=== PATIENT | male | born 1955 | race Caucasian/White ===

== ENCOUNTER → 2016-09-28 | Outpatient (CLI) | payer OTHER ==
--- NOTE | 2016-09-30 09:32 | EKG ---
[facility] [address] [place] [address] Test Date: 2016-09-28 Test Time: 07:29:51 Pat Name: LULU MENDOZA Department: Room: Gender: M Manager Multicultural: Dimitrios Damian : 1955 Requested By: YOVANI TRINIDAD Order Number: [id number] Reading MD: Interpretive Statements
== END | disposition home or self-care (01) ==
LOC: EKG 07:56
PROVIDERS: ATTEND Internal Medicine Cardiovascular Disease
DX: R00.2 Palpitations (principal); R07.9 Chest pain, unspecified; R53.83 Other fatigue
CPT/HCPCS: 93225

== ENCOUNTER 2017-02-09 09:41 | Inpatient (IN) | payer OTHER ==
[~2017-02-09] VITALS: Ht 188 cm; Wt 105.9 kg
[2017-02-09] MEDS ORDERED: SOTA80TA48 PO (09:53)
[2017-02-09] MEDS ORDERED: LISI-334 PO (09:56)
[2017-02-09] MEDS ORDERED: OMEP20CA9 PO (09:56)
[2017-02-09] MEDS ORDERED: L-thyroxine (09:56)
[2017-02-09] MEDS ORDERED: SIMV20TA3 PO (10:00)
[2017-02-09] MEDS ORDERED: ASPIRIN CHEWABLE 81 MG TABLET. PO ONE (10:00)
[2017-02-09] MEDS ORDERED: METF-620 PO (10:00)
[2017-02-09] MEDS ORDERED: MORPHINE SULFATE 4 MG/ML DISP.SYRIN. IV/SQ PRN (10:00)
[2017-02-09] MEDS ORDERED: MV,M1TAB4 PO (10:00)
[2017-02-09] MEDS ORDERED: HYDR25TA9 PO (10:00)
[2017-02-09] MEDS ORDERED: IV NORMAL SALINE 1000ML BAG 1,000 ML IV SCH (10:00)
[2017-02-09] MEDS ORDERED: AMLO1CAP12 PO (10:00)
[2017-02-09] MEDS ORDERED: BUPR100T7 PO (10:00)
[2017-02-09 10:09] LABS: BASO # 0.1 x10^3/uL (0.0-0.2); BASO % 1 % (0-3); EOS % 5 % (0-3); HEMATOCRIT 48.6 % (39.0-53.0); HEMOGLOBIN 16.5 g/dL (13.0-17.5); LYMPH # 1.6 x10^3/uL (1.0-4.8); LYMPH % 19 % (24-48); MEAN CORPUSCULAR HEMOGLOBIN 29 pg (25-35); MEAN CORPUSCULAR HGB CONC 34 g/dL (31-37); MEAN CORPUSCULAR VOLUME 87 fL (79-100); MONO % 7 % (0-9); NEUT % 69 % (31-73); PLATELET COUNT 331 x10^3/uL (140-400); RED CELL DISTRIBUTION WIDTH 14.6 % (11.5-14.5); WHITE BLOOD COUNT 8.2 x10^3/uL (4.0-11.0)
[2017-02-09] MEDS ORDERED: ONDANSETRON PF 4 MG/2 ML VIAL. IV ONE (10:15)
[2017-02-09 10:20] LABS: PROTHROMBIN TIME PATIENT 12.7 SEC (11.7-14.0)
[2017-02-09 10:24] LABS: CALCIUM 8.8 mg/dL (8.5-10.1); POTASSIUM 4.1 mmol/L (3.5-5.1)
[2017-02-09 10:30] LABS: ALBUMIN 3.7 g/dL (3.4-5.0); ALBUMIN/GLOBULIN RATIO 0.9 (1.0-1.7); MAGNESIUM 1.9 mg/dL (1.8-2.4); TOTAL BILIRUBIN 0.6 mg/dL (0.2-1.0); TOTAL PROTEIN 7.7 g/dL (6.4-8.2)
--- NOTE | 2017-02-09 10:47 | RAD ---
Portable chest, 02/09/2017: History: Chest pain Comparison is made to a study from 10/10/2009. The heart size and pulmonary vascularity are normal. No pulmonary infiltrates are seen. There is no evidence of pleural fluid. IMPRESSION: No acute cardiopulmonary abnormality is detected.
--- NOTE | 2017-02-09 11:00 | EKG ---
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
--- NOTE | 2017-02-09 12:19 | PHYS DOC ---
Past Medical History Past Medical History: CAD, Depression, Diabetes-Type II, Hypertension, Hypothyroid Additional Past Medical Histor: LOW TESTOSTERONE Past Surgical History: Tonsillectomy Additional Past Surgical Histo: HEART CATH, SINUS SURGERY, lEFT CARPAL TUNNEL, UMBILICAL HERNIA REPAIR, Past Surgical History tonsillectomy Alcohol Use: Occasionally Drug Use: None Adult General Chief Complaint Chief Complaint: CHEST PAIN HPI HPI Patient is a 61 year old male who reports chest aching yesterday that lasted a number of hours. The patient was today he had midsternal chest tightness with shortness of air and dizziness as well as headache. The patient rated his headache is 3 out of 10 the patient rated his chest pain at the worst 4 out of 10 and was currently 01 on arrival to the emergency department. 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 The patient reports having had a negative cardiac catheter 5 years ago. The patient has history of facial fibrillation hypertension hypercholesterolemia and diabetes. Review of Systems Review of Systems Constitutional: Denies fever or chills [] Eyes: Denies change in visual acuity, redness, or eye pain [] HENT: Denies nasal congestion or sore throat [] Respiratory: Denies cough [] Cardiovascular: No additional information not addressed in HPI [] GI: Denies abdominal pain, nausea, vomiting, bloody stools or diarrhea [] : Denies dysuria or hematuria [] Musculoskeletal: Denies back pain or joint pain [] Integument: Denies rash or skin lesions [] Neurologic: Denies headache, focal weakness or sensory changes [] Endocrine: Denies polyuria or polydipsia [] All other systems were reviewed and found to be within normal limits, except as documented in this note. Current Medications Current Medications Current Medications Medications (Trade) Dose Ordered Sig/Maris Start Time Stop Time Status Last Admin Dose Admin Aspirin (Children'S Aspirin) 324 mg 1X ONCE 02/09/17 10:00 02/09/17 10:05 DC 02/09/17 10:14 324 MG Morphine Sulfate 4 mg PRN Q15MIN PRN 02/09/17 10:00 02/10/17 09:59 02/09/17 10:14 4 MG Ondansetron HCl (Zofran) 8 mg 1X ONCE 02/09/17 10:15 02/09/17 10:16 DC 02/09/17 10:13 4 MG Sodium Chloride 1,000 ml @ 1,000 mls/hr Q1H 02/09/17 10:00 02/09/17 10:59 DC 02/09/17 10:14 1,000 MLS/HR Allergies Allergies Allergies Coded Allergies Type Severity Reaction Last Updated Verified Penicillins Allergy Unknown 02/09/17 Yes Physical Exam Physical Exam Constitutional: Well developed, well nourished, no acute distress, non-toxic appearance. [] HENT: Normocephalic, atraumatic, bilateral external ears normal, oropharynx moist, no oral exudates, nose normal. [] Eyes: PERRLA, EOMI, conjunctiva normal, no discharge. [] Neck: Normal range of motion, no tenderness, supple, no stridor. [] Cardiovascular:Heart rate regular rhythm, no murmur [] Lungs & Thorax: Bilateral breath sounds clear to auscultation [] Abdomen: Bowel sounds normal, soft, no tenderness, no masses, no pulsatile masses. [] Skin: Warm, dry, no erythema, no rash. [] Back: No tenderness, no CVA tenderness. [] Extremities: No tenderness, no cyanosis, no clubbing, ROM intact, no edema. [] Neurologic: Alert and oriented X 3, normal motor function, normal sensory function, no focal deficits noted. [] Psychologic: Affect normal, judgement normal, mood normal. [] Current Patient Data Vital Signs Vital Signs Date Time Temp Pulse Resp B/P (MAP) Pulse Ox O2 Delivery O2 Flow Rate FiO2 02/09/17 12:17 76 16 127/70 (89) 97 Room Air 02/09/17 10:03 97.8 97.8 Lab Values Laboratory Tests Test 02/09/17 10:03 02/09/17 13:43 02/09/17 13:45 White Blood Count 8.2 x10^3/uL (4.0-11.0) Red Blood Count 5.60 x10^6/uL (4.30-5.70) Hemoglobin 16.5 g/dL (13.0-17.5) Hematocrit 48.6 % (39.0-53.0) Mean Corpuscular Volume 87 fL (79-100) Mean Corpuscular Hemoglobin 29 pg (25-35) Mean Corpuscular Hemoglobin Concent 34 g/dL (31-37) Red Cell Distribution Width 14.6 % (11.5-14.5) H Platelet Count 331 x10^3/uL (140-400) Neutrophils (%) (Auto) 69 % (31-73) Lymphocytes (%) (Auto) 19 % (24-48) L Monocytes (%) (Auto) 7 % (0-9) Eosinophils (%) (Auto) 5 % (0-3) H Basophils (%) (Auto) 1 % (0-3) Neutrophils # (Auto) 5.7 x10^3uL (1.8-7.7) Lymphocytes # (Auto) 1.6 x10^3/uL (1.0-4.8) Monocytes # (Auto) 0.6 x10^3/uL (0.0-1.1) Eosinophils # (Auto) 0.4 x10^3/uL (0.0-0.7) Basophils # (Auto) 0.1 x10^3/uL (0.0-0.2) Prothrombin Time 12.7 SEC (11.7-14.0) Prothrombin Time INR 1.0 (0.8-1.1) PTT 30 SEC (24-38) D-Dimer (Shraddha) 0.27 ug/mlFEU (0.00-0.50) Sodium Level 139 mmol/L (136-145) Potassium Level 4.1 mmol/L (3.5-5.1) Chloride Level 103 mmol/L (98-107) Carbon Dioxide Level 29 mmol/L (21-32) Anion Gap 7 (6-14) Blood Urea Nitrogen 14 mg/dL (8-26) Creatinine 1.0 mg/dL (0.7-1.3) Estimated GFR (Cockcroft-Gault) 76.0 BUN/Creatinine Ratio 14 (6-20) Glucose Level 282 mg/dL (70-99) H Calcium Level 8.8 mg/dL (8.5-10.1) Magnesium Level 1.9 mg/dL (1.8-2.4) Total Bilirubin 0.6 mg/dL (0.2-1.0) Aspartate Amino Transferase (AST) 24 U/L (15-37) Alanine Aminotransferase (ALT) 43 U/L (16-63) Alkaline Phosphatase 64 U/L (46-116) Troponin I Quantitative < 0.017 ng/mL (0.000-0.055) < 0.017 ng/mL (0.000-0.055) Total Protein 7.7 g/dL (6.4-8.2) Albumin 3.7 g/dL (3.4-5.0) Albumin/Globulin Ratio 0.9 (1.0-1.7) L Lipase 219 U/L (73-393) POC Troponin I 0.01 ng/ml (<0.08) Laboratory Tests 02/09/17 10:03 Laboratory Tests 02/09/17 10:03 EKG EKG EKG displays sinus rhythm with left axis deviation the SC interval 290 ms qrs duration is 94 ms QT interval is 360 ms there are inverted T waves in lead aVR[] Radiology/Procedures Radiology/Procedures [facility] [address] [place] [address] IMAGING REPORT Signed PATIENT: LULU MENDOZA ACCOUNT: [id number] : 1955 LOCATION: ER AGE: 61 SEX: M EXAM STATUS: REG ER ORD. PHYSICIAN: THONY MEEKS MD REASON: chest pain PROCEDURE: PORTABLE CHEST 1V Portable chest, 02/09/2017: History: Chest pain Comparison is made to a study from 10/10/2009. The heart size and pulmonary vascularity are normal. No pulmonary infiltrates are seen. There is no evidence of pleural fluid. IMPRESSION: No acute cardiopulmonary abnormality is detected. DICTATED and SIGNED BY: KEN ENCINAS MD DATE: 02/09/17 1041 CC: OC JACQUES; THONY MEEKS MD ~ [] Course & Med Decision Making Course & Med Decision Making Pertinent Labs and Imaging studies reviewed. (See chart for details) Chest x-ray does not show any acute process, the patient's d-dimer was 0.27. The patient has low risk for pulmonary emboli. The patient's coagulation studies are within normal limits. The patient's CMP shows elevated glucose at 282. Otherwise within normal limits. CBC shows an shows a normal white blood cell count and normal H&H and normal platelet count. Patient works that his pain is improved during his ED evaluation. The patient at 12:30 PM and he reports he is feeling much better. I went over the plan was discussed with Dr. Mojica for repeat set of laboratory values of those are reassuring outpatient follow-up the patient verbalizes understanding and agreement with that plan. Rechecked patient 132 patient states that he feels weak and that he describes dizziness as feeling like he is about to pass out. The patient [facility] Going Home and Followed up As an Outpatient so He'll Be Admitted to the Hospital. Consult Note: Automotive [employer] Counter Assistant: Dr. Deyvi Mojica First Tylenol was at 1214 we plan outpatient management follow-up call was at 2: 28 PM and he agrees with plan for admission given the patient's symptoms all resolved. I discussed the case to include the history, physical exam findings, diagnostic studies performed, laboratory studies performed, results and plan of care. A consult agreed with established plan. Consult Note: [employer] Counter Assistant: Dr. Quin Flores Automotive [employer] Counter Assistant called at:14:18 I discussed the case to include the history, physical exam findings, diagnostic studies performed, laboratory studies performed, results and plan of care. A consult agreed with established plan. Dr. Peña recommended that we admit the patient is inpatient his history and risk factors. Dragon Disclaimer Dragon Disclaimer This electronic medical record was generated, in whole or in part, using a voice recognition dictation system. Departure Departure Referrals: OC JACQUES (PCP) THONY MEEKS MD Feb 09, 2017 12:19
[2017-02-09] MEDS ORDERED: DEXTROSE 50% 25 GM / 50ML DISP.SYRIN. IV PRN (15:00)
[2017-02-09] MEDS ORDERED: ONDANSETRON PF 4 MG/2 ML VIAL. IV PRN ×2 (15:00)
[2017-02-09] MEDS ORDERED: ACETAMINOPHEN 500 MG TABLET PO PRN (15:00)
[2017-02-09] MEDS ORDERED: NITROGLYCERIN SUBLINGUAL 0.4 MG BOTTLE OF 25. SL PRN (15:00)
[2017-02-09] MEDS ORDERED: MORPHINE SULFATE 4 MG/ML DISP.SYRIN. IV PRN (15:00)
--- NOTE | 2017-02-09 15:03 | PDOC1 ---
History and Physical Date of Admission Date of Admission DATE: 02/09/17 TIME: 14:59 Identification/Chief Complaint Chief Complaint chest tightness Problems: Source Source: Caregiver, Chart review, Patient History of Present Illness History of Present Illness Very pleasant 61 y.o obese male who does a high stress job but claims no recent change in habits, stress level etc, CP described as left sided, chest tightness , pressure yesterday at rest and today again at work non exertional, Some SOA, dizzy, no diaphoresis, came to er so far EKG and trops x 2 ok. LAst LHC 5 yrs ago,clean, MPI a montn ago By Sara Ramirez, Admitted with cards. Morphine somewhat helped the pain. VS very good DM 2 with hgba1c 6,.4 only on OHA Past Medical History Cardiovascular: HTN, Hyperlipidemia Endocrine: Diabetes Past Surgical History Past Surgical History: Hernia Repair, Tonsillectomy, Other (carpal tunnel release) Family History Family History: High Cholestrol, Hypertension Social History Smoke: No ALCOHOL: occassional Drugs: None Current Medications Current Medications Current Medications Aspirin (Children'S Aspirin) 324 mg 1X ONCE PO Last administered on 10:14; Start 02/09/17 at 10:00; Stop 02/09/17 at 10:05; Status DC Morphine Sulfate 4 mg PRN Q15MIN PRN IV/SQ PAIN GREATER THAN 3/10 Last administered on 02/09/17 10:14; Start 02/09/17 at 10:00; Stop 02/10/17 at 09 :59 Sodium Chloride 1,000 ml @ 1,000 mls/hr Q1H IV Last administered on 10:14; Start 02/09/17 at 10:00; Stop 02/09/17 at 10:59; Status DC Ondansetron HCl (Zofran) 8 mg 1X ONCE IV Last administered on 02/09/17 10:13 ; Start 02/09/17 at 10:15; Stop 02/09/17 at 10:16; Status DC Ondansetron HCl (Zofran) 4 mg PRN Q8HRS PRN IV NAUSEA/VOMITING; Start at 15:00; Stop 02/10/17 at 14:59 Morphine Sulfate 4 mg PRN Q2HR PRN IV PAIN; Start 02/09/17 at 15:00; Stop at 14:59 Sodium Chloride 1,000 ml @ 60 mls/hr [id number] IV ; Start 02/09/17 at 14:47; Stop 02/10/17 at 14:46 Nitroglycerin (Nitrostat) 0.4 mg PRN Q5MIN PRN SL CHEST PAIN; Start 02/09/17 at 15:00; Stop 02/10/17 at 14:59 Active Scripts Active Reported Simvastatin 20 Mg Tablet 20 Mg PO HS One Daily For Men 50+ Adv Tab (Mv,Minerals/Fa/Lycopene/Ginkgo) 1 Each Tablet 1 Each PO Wellbutrin Sr (Bupropion Hcl) 100 Mg Tablet.er 100 Mg PO DAILY Metformin Hcl 1,000 Mg Tablet 1,000 Mg PO DAILYWBKFT Hydrochlorothiazide Tablet (Hydrochlorothiazide) 25 Mg Tablet 25 Mg PO DAILY Amlodipine-Benazepril 10-20 Mg (Amlodipine Besylate/Benazepril) 1 Each Capsule 1 Cap PO DAILY [L-thyroxine] Omeprazole 20 Mg Capsule.dr 20 Mg PO DAILY Lisinopril 20 Mg Tablet 20 Mg PO DAILY Sotalol (Sotalol Hcl) 80 Mg Tablet 1 Tab PO BID Allergies Allergies: Coded Allergies: Penicillins (Verified Allergy, Unknown, 02/09/17) ROS Review of System neg as per HPI 14 pt reviewed Physical Exam General: Alert, Oriented X3, Cooperative, No acute distress HEENT: Atraumatic, PERRLA, EOMI, Mucous membr. moist/pink Lungs: Clear to auscultation, Normal air movement Heart: S1S2, RRR, no thrills, no rubs, no gallops, no murmurs Cardiovascular: S1, S2 Abdomen: Normal bowel sounds, Soft, No tenderness, No hepatosplenomegaly, No masses Male Genitals Exam: normal genitalia, normal prostate Rectal Exam: not examined, mass PELVIC: Nml ext genitalia Extremities: No clubbing, No cyanosis, No edema, Normal pulses, No tenderness/ swelling Skin: No rashes, No breakdown, No significant lesion Neuro: Normal gait, Normal speech, Strength at 5/5 X4 ext, Normal tone, Sensation intact, Cranial nerves 3-12 NL, Reflexes 2+ Psych/Mental Status: Mental status NL, Mood NL Vitals Vitals Vital Signs Date Time Temp Pulse Resp B/P (MAP) Pulse Ox O2 Delivery O2 Flow Rate FiO2 02/09/17 12:17 76 16 127/70 (89) 97 Room Air 02/09/17 10:03 97.8 97.8 Labs Labs Laboratory Tests Test 02/09/17 10:03 02/09/17 13:43 02/09/17 13:45 White Blood Count 8.2 x10^3/uL (4.0-11.0) Red Blood Count 5.60 x10^6/uL (4.30-5.70) Hemoglobin 16.5 g/dL (13.0-17.5) Hematocrit 48.6 % (39.0-53.0) Mean Corpuscular Volume 87 fL (79-100) Mean Corpuscular Hemoglobin 29 pg (25-35) Mean Corpuscular Hemoglobin Concent 34 g/dL (31-37) Red Cell Distribution Width 14.6 % (11.5-14.5) Platelet Count 331 x10^3/uL (140-400) Neutrophils (%) (Auto) 69 % (31-73) Lymphocytes (%) (Auto) 19 % (24-48) Monocytes (%) (Auto) 7 % (0-9) Eosinophils (%) (Auto) 5 % (0-3) Basophils (%) (Auto) 1 % (0-3) Neutrophils # (Auto) 5.7 x10^3uL (1.8-7.7) Lymphocytes # (Auto) 1.6 x10^3/uL (1.0-4.8) Monocytes # (Auto) 0.6 x10^3/uL (0.0-1.1) Eosinophils # (Auto) 0.4 x10^3/uL (0.0-0.7) Basophils # (Auto) 0.1 x10^3/uL (0.0-0.2) Prothrombin Time 12.7 SEC (11.7-14.0) Prothromb Time International Ratio 1.0 (0.8-1.1) Activated Partial Thromboplast Time 30 SEC (24-38) D-Dimer (Shraddha) 0.27 ug/mlFEU (0.00-0.50) Sodium Level 139 mmol/L (136-145) Potassium Level 4.1 mmol/L (3.5-5.1) Chloride Level 103 mmol/L (98-107) Carbon Dioxide Level 29 mmol/L (21-32) Anion Gap 7 (6-14) Blood Urea Nitrogen 14 mg/dL (8-26) Creatinine 1.0 mg/dL (0.7-1.3) Estimated GFR (Cockcroft-Gault) 76.0 BUN/Creatinine Ratio 14 (6-20) Glucose Level 282 mg/dL (70-99) Calcium Level 8.8 mg/dL (8.5-10.1) Magnesium Level 1.9 mg/dL (1.8-2.4) Total Bilirubin 0.6 mg/dL (0.2-1.0) Aspartate Amino Transf (AST/SGOT) 24 U/L (15-37) Alanine Aminotransferase (ALT/SGPT) 43 U/L (16-63) Alkaline Phosphatase 64 U/L (46-116) Troponin I Quantitative < 0.017 ng/mL (0.000-0.055) < 0.017 ng/mL (0.000-0.055) Total Protein 7.7 g/dL (6.4-8.2) Albumin 3.7 g/dL (3.4-5.0) Albumin/Globulin Ratio 0.9 (1.0-1.7) Lipase 219 U/L (73-393) Bedside Troponin I 0.01 ng/ml (<0.08) Laboratory Tests Test 02/09/17 10:03 02/09/17 13:43 02/09/17 13:45 White Blood Count 8.2 x10^3/uL (4.0-11.0) Red Blood Count 5.60 x10^6/uL (4.30-5.70) Hemoglobin 16.5 g/dL (13.0-17.5) Hematocrit 48.6 % (39.0-53.0) Mean Corpuscular Volume 87 fL (79-100) Mean Corpuscular Hemoglobin 29 pg (25-35) Mean Corpuscular Hemoglobin Concent 34 g/dL (31-37) Red Cell Distribution Width 14.6 % (11.5-14.5) Platelet Count 331 x10^3/uL (140-400) Neutrophils (%) (Auto) 69 % (31-73) Lymphocytes (%) (Auto) 19 % (24-48) Monocytes (%) (Auto) 7 % (0-9) Eosinophils (%) (Auto) 5 % (0-3) Basophils (%) (Auto) 1 % (0-3) Neutrophils # (Auto) 5.7 x10^3uL (1.8-7.7) Lymphocytes # (Auto) 1.6 x10^3/uL (1.0-4.8) Monocytes # (Auto) 0.6 x10^3/uL (0.0-1.1) Eosinophils # (Auto) 0.4 x10^3/uL (0.0-0.7) Basophils # (Auto) 0.1 x10^3/uL (0.0-0.2) Prothrombin Time 12.7 SEC (11.7-14.0) Prothromb Time International Ratio 1.0 (0.8-1.1) Activated Partial Thromboplast Time 30 SEC (24-38) D-Dimer (Shraddha) 0.27 ug/mlFEU (0.00-0.50) Sodium Level 139 mmol/L (136-145) Potassium Level 4.1 mmol/L (3.5-5.1) Chloride Level 103 mmol/L (98-107) Carbon Dioxide Level 29 mmol/L (21-32) Anion Gap 7 (6-14) Blood Urea Nitrogen 14 mg/dL (8-26) Creatinine 1.0 mg/dL (0.7-1.3) Estimated GFR (Cockcroft-Gault) 76.0 BUN/Creatinine Ratio 14 (6-20) Glucose Level 282 mg/dL (70-99) Calcium Level 8.8 mg/dL (8.5-10.1) Magnesium Level 1.9 mg/dL (1.8-2.4) Total Bilirubin 0.6 mg/dL (0.2-1.0) Aspartate Amino Transf (AST/SGOT) 24 U/L (15-37) Alanine Aminotransferase (ALT/SGPT) 43 U/L (16-63) Alkaline Phosphatase 64 U/L (46-116) Troponin I Quantitative < 0.017 ng/mL (0.000-0.055) < 0.017 ng/mL (0.000-0.055) Total Protein 7.7 g/dL (6.4-8.2) Albumin 3.7 g/dL (3.4-5.0) Albumin/Globulin Ratio 0.9 (1.0-1.7) Lipase 219 U/L (73-393) Bedside Troponin I 0.01 ng/ml (<0.08) VTE Prophylaxis Ordered VTE Prophylaxis Devices: Yes VTE Pharmacological Prophylaxi: Yes Assessment/Plan Assessment/Plan 1. CP 2. Dm 2 on OHA with good control 3,. Obesity PLAn: Admit Cycle CE 'Dr Roberts consult SSi Resume home meds Seen at JADEN PARKER MD Feb 09, 2017 15:03
[2017-02-09 15:50] VITALS: BP 131/78
[2017-02-09] MEDS: INSULIN ASPART 300 UNITS/3 ML INSULN.PEN SQ SCH (17:00)
--- NOTE | 2017-02-09 17:32 | PDOC2 ---
CONSULT Date of Consult Date of Consult DATE: 02/09/17 TIME: 17:27 Reason for Consult Reason for Consult: Chest pain Referring Physician Referring Physician: Dr. Flores Identification/Chief Complaint Chief Complaint Chest pain Problems: History of Present Illness Reason for Visit: This patient is a 61-year-old gentleman that has a known history of diabetes, hypertension, hyperlipidemia. 5 years ago he had some episodes of chest pains and he had a workup done including a heart catheterization which showed normal coronaries at that time. The patient has been doing rather well until now when he came into the emergency room with some chest tightness. The patient's EKG did not show any acute changes and the first troponin was negative. At the time that I saw the patient he denies having any more chest discomfort. The pain that he had he states was like a tightness over the retrosternal area he was not diaphoretic and he was not short of breath. Past Medical History Cardiovascular: HTN, Hyperlipidemia Musculoskeletal: Osteoarthritis Endocrine: Diabetes Past Surgical History Past Surgical History: Hernia Repair, Tonsillectomy, Other (carpal tunnel release) Family History Family History: High Cholestrol, Hypertension Social History No ALCOHOL: occassional Drugs: None Current Medications Current Medications Current Medications Aspirin (Children'S Aspirin) 324 mg 1X ONCE PO Last administered on 10:14; Start 02/09/17 at 10:00; Stop 02/09/17 at 10:05; Status DC Morphine Sulfate 4 mg PRN Q15MIN PRN IV/SQ PAIN GREATER THAN 3/10 Last administered on 02/09/17 10:14; Start 02/09/17 at 10:00; Stop 02/09/17 at 15 :16; Status DC Sodium Chloride 1,000 ml @ 1,000 mls/hr Q1H IV Last administered on 10:14; Start 02/09/17 at 10:00; Stop 02/09/17 at 10:59; Status DC Ondansetron HCl (Zofran) 8 mg 1X ONCE IV Last administered on 02/09/17 10:13 ; Start 02/09/17 at 10:15; Stop 02/09/17 at 10:16; Status DC Ondansetron HCl (Zofran) 4 mg PRN Q8HRS PRN IV NAUSEA/VOMITING; Start at 15:00; Stop 02/09/17 at 15:00; Status DC Morphine Sulfate 4 mg PRN Q2HR PRN IV PAIN; Start 02/09/17 at 15:00; Stop at 14:59 Sodium Chloride 1,000 ml @ 60 mls/hr [id number] IV ; Start 02/09/17 at 14:47; Stop 02/10/17 at 14:46 Nitroglycerin (Nitrostat) 0.4 mg PRN Q5MIN PRN SL CHEST PAIN; Start 02/09/17 at 15:00; Stop 02/10/17 at 14:59 Ondansetron HCl (Zofran) 4 mg PRN Q6HRS PRN IV NAUSEA/VOMITING; Start at 15:00; Stop 02/10/17 at 14:59 Acetaminophen (Tylenol) 500 mg PRN Q6HRS PRN PO MILD PAIN / TEMP; Start at 15:00 Insulin Aspart (NovoLOG) 0-9 UNITS TIDWMEALS SQ ; Start 02/09/17 at 17:00 Dextrose (Dextrose 50%-Water Syringe) 12.5 gm PRN Q15MIN PRN IV SEE COMMENTS; Start 02/09/17 at 15:00 Bupropion HCl (Wellbutrin Sr) 100 mg DAILY PO ; Start 02/10/17 at 09:00 Hydrochlorothiazide (Hydrodiuril) 25 mg DAILY PO ; Start 02/10/17 at 09:00 Lisinopril (Prinivil) 20 mg DAILY PO ; Start 02/10/17 at 09:00 Metformin HCl (Glucophage) 1,000 mg DAILYWBKFT PO ; Start 02/10/17 at 08:00 Simvastatin (Zocor) 20 mg HS PO ; Start 02/09/17 at 21:00 Sotalol HCl (Betapace) 80 mg BID PO ; Start 02/09/17 at 21:00 Amlodipine Besylate (Norvasc) 10 mg DAILY PO ; Start 02/10/17 at 09:00 Pantoprazole Sodium (Protonix) 40 mg DAILYAC PO ; Start 02/10/17 at 07:30 Active Scripts Active Reported Simvastatin 20 Mg Tablet 20 Mg PO HS One Daily For Men 50+ Adv Tab (Mv,Minerals/Fa/Lycopene/Ginkgo) 1 Each Tablet 1 Each PO Wellbutrin Sr (Bupropion Hcl) 100 Mg Tablet.er 100 Mg PO DAILY Metformin Hcl 1,000 Mg Tablet 1,000 Mg PO DAILYWBKFT Hydrochlorothiazide Tablet (Hydrochlorothiazide) 25 Mg Tablet 25 Mg PO DAILY Amlodipine-Benazepril 10-20 Mg (Amlodipine Besylate/Benazepril) 1 Each Capsule 1 Cap PO DAILY [L-thyroxine] Omeprazole 20 Mg Capsule.dr 20 Mg PO DAILY Lisinopril 20 Mg Tablet 20 Mg PO DAILY Sotalol (Sotalol Hcl) 80 Mg Tablet 1 Tab PO BID Allergies Allergies: Coded Allergies: Penicillins (Verified Allergy, Unknown, 02/09/17) Physical Exam General: Alert, Oriented X3, Cooperative HEENT: PERRLA Lungs: Clear to auscultation Heart: Regular rate, Normal S1, Normal S2 Abdomen: Normal bowel sounds, Soft Extremities: No edema Psych/Mental Status: Mental status NL Vitals VITALS Vital Signs Date Time Temp Pulse Resp B/P (MAP) Pulse Ox O2 Delivery O2 Flow Rate FiO2 02/09/17 16:22 76 16 118/74 (89) 97 Room Air 02/09/17 15:50 97.9 97.9 Labs Labs Laboratory Tests Test 02/09/17 10:03 02/09/17 13:43 02/09/17 13:45 02/09/17 16:00 White Blood Count 8.2 x10^3/uL (4.0-11.0) Red Blood Count 5.60 x10^6/uL (4.30-5.70) Hemoglobin 16.5 g/dL (13.0-17.5) Hematocrit 48.6 % (39.0-53.0) Mean Corpuscular Volume 87 fL (79-100) Mean Corpuscular Hemoglobin 29 pg (25-35) Mean Corpuscular Hemoglobin Concent 34 g/dL (31-37) Red Cell Distribution Width 14.6 % (11.5-14.5) Platelet Count 331 x10^3/uL (140-400) Neutrophils (%) (Auto) 69 % (31-73) Lymphocytes (%) (Auto) 19 % (24-48) Monocytes (%) (Auto) 7 % (0-9) Eosinophils (%) (Auto) 5 % (0-3) Basophils (%) (Auto) 1 % (0-3) Neutrophils # (Auto) 5.7 x10^3uL (1.8-7.7) Lymphocytes # (Auto) 1.6 x10^3/uL (1.0-4.8) Monocytes # (Auto) 0.6 x10^3/uL (0.0-1.1) Eosinophils # (Auto) 0.4 x10^3/uL (0.0-0.7) Basophils # (Auto) 0.1 x10^3/uL (0.0-0.2) Prothrombin Time 12.7 SEC (11.7-14.0) Prothromb Time International Ratio 1.0 (0.8-1.1) Activated Partial Thromboplast Time 30 SEC (24-38) D-Dimer (Shraddha) 0.27 ug/mlFEU (0.00-0.50) Sodium Level 139 mmol/L (136-145) Potassium Level 4.1 mmol/L (3.5-5.1) Chloride Level 103 mmol/L (98-107) Carbon Dioxide Level 29 mmol/L (21-32) Anion Gap 7 (6-14) Blood Urea Nitrogen 14 mg/dL (8-26) Creatinine 1.0 mg/dL (0.7-1.3) Estimated GFR (Cockcroft-Gault) 76.0 BUN/Creatinine Ratio 14 (6-20) Glucose Level 282 mg/dL (70-99) Calcium Level 8.8 mg/dL (8.5-10.1) Magnesium Level 1.9 mg/dL (1.8-2.4) Total Bilirubin 0.6 mg/dL (0.2-1.0) Aspartate Amino Transf (AST/SGOT) 24 U/L (15-37) Alanine Aminotransferase (ALT/SGPT) 43 U/L (16-63) Alkaline Phosphatase 64 U/L (46-116) Troponin I Quantitative < 0.017 ng/mL (0.000-0.055) < 0.017 ng/mL (0.000-0.055) Total Protein 7.7 g/dL (6.4-8.2) Albumin 3.7 g/dL (3.4-5.0) Albumin/Globulin Ratio 0.9 (1.0-1.7) Lipase 219 U/L (73-393) Bedside Troponin I 0.01 ng/ml (<0.08) Glucose (Fingerstick) 76 mg/dL (70-99) Laboratory Tests Test 02/09/17 10:03 02/09/17 13:43 02/09/17 13:45 02/09/17 16:00 White Blood Count 8.2 x10^3/uL (4.0-11.0) Red Blood Count 5.60 x10^6/uL (4.30-5.70) Hemoglobin 16.5 g/dL (13.0-17.5) Hematocrit 48.6 % (39.0-53.0) Mean Corpuscular Volume 87 fL (79-100) Mean Corpuscular Hemoglobin 29 pg (25-35) Mean Corpuscular Hemoglobin Concent 34 g/dL (31-37) Red Cell Distribution Width 14.6 % (11.5-14.5) Platelet Count 331 x10^3/uL (140-400) Neutrophils (%) (Auto) 69 % (31-73) Lymphocytes (%) (Auto) 19 % (24-48) Monocytes (%) (Auto) 7 % (0-9) Eosinophils (%) (Auto) 5 % (0-3) Basophils (%) (Auto) 1 % (0-3) Neutrophils # (Auto) 5.7 x10^3uL (1.8-7.7) Lymphocytes # (Auto) 1.6 x10^3/uL (1.0-4.8) Monocytes # (Auto) 0.6 x10^3/uL (0.0-1.1) Eosinophils # (Auto) 0.4 x10^3/uL (0.0-0.7) Basophils # (Auto) 0.1 x10^3/uL (0.0-0.2) Prothrombin Time 12.7 SEC (11.7-14.0) Prothromb Time International Ratio 1.0 (0.8-1.1) Activated Partial Thromboplast Time 30 SEC (24-38) D-Dimer (Shraddha) 0.27 ug/mlFEU (0.00-0.50) Sodium Level 139 mmol/L (136-145) Potassium Level 4.1 mmol/L (3.5-5.1) Chloride Level 103 mmol/L (98-107) Carbon Dioxide Level 29 mmol/L (21-32) Anion Gap 7 (6-14) Blood Urea Nitrogen 14 mg/dL (8-26) Creatinine 1.0 mg/dL (0.7-1.3) Estimated GFR (Cockcroft-Gault) 76.0 BUN/Creatinine Ratio 14 (6-20) Glucose Level 282 mg/dL (70-99) Calcium Level 8.8 mg/dL (8.5-10.1) Magnesium Level 1.9 mg/dL (1.8-2.4) Total Bilirubin 0.6 mg/dL (0.2-1.0) Aspartate Amino Transf (AST/SGOT) 24 U/L (15-37) Alanine Aminotransferase (ALT/SGPT) 43 U/L (16-63) Alkaline Phosphatase 64 U/L (46-116) Troponin I Quantitative < 0.017 ng/mL (0.000-0.055) < 0.017 ng/mL (0.000-0.055) Total Protein 7.7 g/dL (6.4-8.2) Albumin 3.7 g/dL (3.4-5.0) Albumin/Globulin Ratio 0.9 (1.0-1.7) Lipase 219 U/L (73-393) Bedside Troponin I 0.01 ng/ml (<0.08) Glucose (Fingerstick) 76 mg/dL (70-99) Assessment/Plan Assessment/Plan This patient with significant risk factors for coronary artery disease had a normal heart catheterization about 5 years ago. He now comes back with some symptoms that may be suspicious for angina and he is a diabetic. So far the EKG and the enzymes have been negative. In view of this I would like to get a Lexiscan MPI to be done in the morning. Thank you very much for asking me to participate in the care of this patient. YOVANI TRINIDAD MD Feb 09, 2017 17:32
[2017-02-09 19:00] VITALS: BP 136/77
[2017-02-09] MEDS: IV NORMAL SALINE 1000ML BAG 1,000 ML IV SCH (20:42)
[2017-02-09] MEDS: SOTALOL 80 MG TABLET. PO SCH (20:43)
[2017-02-09] MEDS ORDERED: SIMVASTATIN 20 MG TABLET PO SCH (21:00)
[2017-02-09 23:00] VITALS: BP 118/71
[2017-02-10 03:00] VITALS: BP 111/71
[2017-02-10 07:16] VITALS: BP 123/76
[2017-02-10] MEDS: IV NORMAL SALINE 1000ML BAG 1,000 ML IV SCH (07:27)
[2017-02-10] MEDS ORDERED: PANTOPRAZOLE 40 MG TABLET.DR. PO SCH (07:30)
[2017-02-10] MEDS: INSULIN ASPART 300 UNITS/3 ML INSULN.PEN SQ SCH ×2 (08:00→12:00)
[2017-02-10] MEDS ORDERED: REGADENOSON 0.4 MG/5 ML DISP.SYRIN. IV ONE (08:15)
[2017-02-10] MEDS ORDERED: amLODIPine BESYLATE 10 MG TABLET PO SCH (09:00)
[2017-02-10] MEDS ORDERED: LISINOPRIL 20 MG TABLET PO SCH (09:00)
[2017-02-10] MEDS ORDERED: buPROPion SR 100 MG TABLET.SA. PO SCH (09:00)
[2017-02-10] MEDS ORDERED: hydroCHLOROthiazide 25 MG TABLET PO SCH (09:00)
--- NOTE | 2017-02-10 09:36 | PDOC ---
PROGRESS NOTES Subjective Subjective EKG showed no new changes, troponins were negative x3, D dimer also negative. Underwent stress test this morning d/t concerns for angina. Objective Objective Vital Signs Date Time Temp Pulse Resp B/P (MAP) Pulse Ox O2 Delivery O2 Flow Rate FiO2 02/10/17 07:16 98.1 58 16 123/76 (92) 96 Room Air 98.1 Intake and Output 02/10/17 06:59 Intake Total 1900 ml Balance 1900 ml Intake Oral 300 ml IV Total 1000 ml Other 600 ml # Voids 3 Physical Exam Physical Exam Patient in stress test this morning. Unable to perform. Assessment Assessment Stress test results so no evidence of ischemia and low risk for cardiac events. Stable from cardiac standpoint. Plan for discharge. Comment Review of Relevant I have reviewed the following items jericho (where applicable) has been applied. Labs Laboratory Tests Test 02/09/17 10:03 02/09/17 13:43 02/09/17 13:45 02/09/17 16:00 White Blood Count 8.2 x10^3/uL (4.0-11.0) Red Blood Count 5.60 x10^6/uL (4.30-5.70) Hemoglobin 16.5 g/dL (13.0-17.5) Hematocrit 48.6 % (39.0-53.0) Mean Corpuscular Volume 87 fL (79-100) Mean Corpuscular Hemoglobin 29 pg (25-35) Mean Corpuscular Hemoglobin Concent 34 g/dL (31-37) Red Cell Distribution Width 14.6 % (11.5-14.5) Platelet Count 331 x10^3/uL (140-400) Neutrophils (%) (Auto) 69 % (31-73) Lymphocytes (%) (Auto) 19 % (24-48) Monocytes (%) (Auto) 7 % (0-9) Eosinophils (%) (Auto) 5 % (0-3) Basophils (%) (Auto) 1 % (0-3) Neutrophils # (Auto) 5.7 x10^3uL (1.8-7.7) Lymphocytes # (Auto) 1.6 x10^3/uL (1.0-4.8) Monocytes # (Auto) 0.6 x10^3/uL (0.0-1.1) Eosinophils # (Auto) 0.4 x10^3/uL (0.0-0.7) Basophils # (Auto) 0.1 x10^3/uL (0.0-0.2) Prothrombin Time 12.7 SEC (11.7-14.0) Prothromb Time International Ratio 1.0 (0.8-1.1) Activated Partial Thromboplast Time 30 SEC (24-38) D-Dimer (Shraddha) 0.27 ug/mlFEU (0.00-0.50) Sodium Level 139 mmol/L (136-145) Potassium Level 4.1 mmol/L (3.5-5.1) Chloride Level 103 mmol/L (98-107) Carbon Dioxide Level 29 mmol/L (21-32) Anion Gap 7 (6-14) Blood Urea Nitrogen 14 mg/dL (8-26) Creatinine 1.0 mg/dL (0.7-1.3) Estimated GFR (Cockcroft-Gault) 76.0 BUN/Creatinine Ratio 14 (6-20) Glucose Level 282 mg/dL (70-99) Calcium Level 8.8 mg/dL (8.5-10.1) Magnesium Level 1.9 mg/dL (1.8-2.4) Total Bilirubin 0.6 mg/dL (0.2-1.0) Aspartate Amino Transf (AST/SGOT) 24 U/L (15-37) Alanine Aminotransferase (ALT/SGPT) 43 U/L (16-63) Alkaline Phosphatase 64 U/L (46-116) Troponin I Quantitative < 0.017 ng/mL (0.000-0.055) < 0.017 ng/mL (0.000-0.055) Total Protein 7.7 g/dL (6.4-8.2) Albumin 3.7 g/dL (3.4-5.0) Albumin/Globulin Ratio 0.9 (1.0-1.7) Lipase 219 U/L (73-393) Bedside Troponin I 0.01 ng/ml (<0.08) Glucose (Fingerstick) 76 mg/dL (70-99) Test 02/09/17 20:40 02/09/17 21:26 02/10/17 02:40 02/10/17 07:45 Troponin I Quantitative < 0.017 ng/mL (0.000-0.055) < 0.017 ng/mL (0.000-0.055) Glucose (Fingerstick) 150 mg/dL (70-99) 130 mg/dL (70-99) Laboratory Tests Test 02/09/17 10:03 02/09/17 13:43 02/09/17 13:45 02/09/17 16:00 White Blood Count 8.2 x10^3/uL (4.0-11.0) Red Blood Count 5.60 x10^6/uL (4.30-5.70) Hemoglobin 16.5 g/dL (13.0-17.5) Hematocrit 48.6 % (39.0-53.0) Mean Corpuscular Volume 87 fL (79-100) Mean Corpuscular Hemoglobin 29 pg (25-35) Mean Corpuscular Hemoglobin Concent 34 g/dL (31-37) Red Cell Distribution Width 14.6 % (11.5-14.5) Platelet Count 331 x10^3/uL (140-400) Neutrophils (%) (Auto) 69 % (31-73) Lymphocytes (%) (Auto) 19 % (24-48) Monocytes (%) (Auto) 7 % (0-9) Eosinophils (%) (Auto) 5 % (0-3) Basophils (%) (Auto) 1 % (0-3) Neutrophils # (Auto) 5.7 x10^3uL (1.8-7.7) Lymphocytes # (Auto) 1.6 x10^3/uL (1.0-4.8) Monocytes # (Auto) 0.6 x10^3/uL (0.0-1.1) Eosinophils # (Auto) 0.4 x10^3/uL (0.0-0.7) Basophils # (Auto) 0.1 x10^3/uL (0.0-0.2) Prothrombin Time 12.7 SEC (11.7-14.0) Prothromb Time International Ratio 1.0 (0.8-1.1) Activated Partial Thromboplast Time 30 SEC (24-38) D-Dimer (Shraddha) 0.27 ug/mlFEU (0.00-0.50) Sodium Level 139 mmol/L (136-145) Potassium Level 4.1 mmol/L (3.5-5.1) Chloride Level 103 mmol/L (98-107) Carbon Dioxide Level 29 mmol/L (21-32) Anion Gap 7 (6-14) Blood Urea Nitrogen 14 mg/dL (8-26) Creatinine 1.0 mg/dL (0.7-1.3) Estimated GFR (Cockcroft-Gault) 76.0 BUN/Creatinine Ratio 14 (6-20) Glucose Level 282 mg/dL (70-99) Calcium Level 8.8 mg/dL (8.5-10.1) Magnesium Level 1.9 mg/dL (1.8-2.4) Total Bilirubin 0.6 mg/dL (0.2-1.0) Aspartate Amino Transf (AST/SGOT) 24 U/L (15-37) Alanine Aminotransferase (ALT/SGPT) 43 U/L (16-63) Alkaline Phosphatase 64 U/L (46-116) Troponin I Quantitative < 0.017 ng/mL (0.000-0.055) < 0.017 ng/mL (0.000-0.055) Total Protein 7.7 g/dL (6.4-8.2) Albumin 3.7 g/dL (3.4-5.0) Albumin/Globulin Ratio 0.9 (1.0-1.7) Lipase 219 U/L (73-393) Bedside Troponin I 0.01 ng/ml (<0.08) Glucose (Fingerstick) 76 mg/dL (70-99) Test 02/09/17 20:40 02/09/17 21:26 02/10/17 02:40 02/10/17 07:45 Troponin I Quantitative < 0.017 ng/mL (0.000-0.055) < 0.017 ng/mL (0.000-0.055) Glucose (Fingerstick) 150 mg/dL (70-99) 130 mg/dL (70-99) Medications Current Medications Aspirin (Children'S Aspirin) 324 mg 1X ONCE PO Last administered on 10:14; Start 02/09/17 at 10:00; Stop 02/09/17 at 10:05; Status DC Morphine Sulfate 4 mg PRN Q15MIN PRN IV/SQ PAIN GREATER THAN 3/10 Last administered on 02/09/17 10:14; Start 02/09/17 at 10:00; Stop 02/09/17 at 15 :16; Status DC Sodium Chloride 1,000 ml @ 1,000 mls/hr Q1H IV Last administered on 10:14; Start 02/09/17 at 10:00; Stop 02/09/17 at 10:59; Status DC Ondansetron HCl (Zofran) 8 mg 1X ONCE IV Last administered on 02/09/17 10:13 ; Start 02/09/17 at 10:15; Stop 02/09/17 at 10:16; Status DC Ondansetron HCl (Zofran) 4 mg PRN Q8HRS PRN IV NAUSEA/VOMITING; Start at 15:00; Stop 02/09/17 at 15:00; Status DC Morphine Sulfate 4 mg PRN Q2HR PRN IV PAIN; Start 02/09/17 at 15:00; Stop at 14:59 Sodium Chloride 1,000 ml @ 60 mls/hr [id number] IV Last administered on 20:42; Start 02/09/17 at 14:47; Stop 02/10/17 at 14:46 Nitroglycerin (Nitrostat) 0.4 mg PRN Q5MIN PRN SL CHEST PAIN; Start 02/09/17 at 15:00; Stop 02/10/17 at 14:59 Ondansetron HCl (Zofran) 4 mg PRN Q6HRS PRN IV NAUSEA/VOMITING; Start at 15:00; Stop 02/10/17 at 14:59 Acetaminophen (Tylenol) 500 mg PRN Q6HRS PRN PO MILD PAIN / TEMP; Start at 15:00 Insulin Aspart (NovoLOG) 0-9 UNITS TIDWMEALS SQ ; Start 02/09/17 at 17:00 Dextrose (Dextrose 50%-Water Syringe) 12.5 gm PRN Q15MIN PRN IV SEE COMMENTS; Start 02/09/17 at 15:00 Bupropion HCl (Wellbutrin Sr) 100 mg DAILY PO ; Start 02/10/17 at 09:00 Hydrochlorothiazide (Hydrodiuril) 25 mg DAILY PO ; Start 02/10/17 at 09:00 Lisinopril (Prinivil) 20 mg DAILY PO ; Start 02/10/17 at 09:00 Metformin HCl (Glucophage) 1,000 mg DAILYWBKFT PO ; Start 02/10/17 at 08:00 Simvastatin (Zocor) 20 mg HS PO Last administered on 02/09/17 20:43; Start 02/09/17 at 21:00 Sotalol HCl (Betapace) 80 mg BID PO Last administered on 02/09/17 20:43; Start 02/09/17 at 21:00 Amlodipine Besylate (Norvasc) 10 mg DAILY PO ; Start 02/10/17 at 09:00 Pantoprazole Sodium (Protonix) 40 mg DAILYAC PO ; Start 02/10/17 at 07:30 Regadenoson (Lexiscan) 0.4 mg 1X ONCE IV Last administered on 02/10/17 09:18 ; Start 02/10/17 at 08:15; Stop 02/10/17 at 08:16; Status DC Active Scripts Active Reported Simvastatin 20 Mg Tablet 20 Mg PO HS One Daily For Men 50+ Adv Tab (Mv,Minerals/Fa/Lycopene/Ginkgo) 1 Each Tablet 1 Each PO Wellbutrin Sr (Bupropion Hcl) 100 Mg Tablet.er 100 Mg PO DAILY Metformin Hcl 1,000 Mg Tablet 1,000 Mg PO DAILYWBKFT Hydrochlorothiazide Tablet (Hydrochlorothiazide) 25 Mg Tablet 25 Mg PO DAILY Amlodipine-Benazepril 10-20 Mg (Amlodipine Besylate/Benazepril) 1 Each Capsule 1 Cap PO DAILY [L-thyroxine] Omeprazole 20 Mg Capsule.dr 20 Mg PO DAILY Lisinopril 20 Mg Tablet 20 Mg PO DAILY Sotalol (Sotalol Hcl) 80 Mg Tablet 1 Tab PO BID Vitals/I & O Vital Sign - Last 24 Hours 02/09/17 02/09/17 02/09/17 02/09/17 10:03 10:14 11:00 12:17 Temp 97.8 97.8 Pulse 86 66 76 Resp 18 16 16 16 B/P (MAP) 145/82 (103) 112/68 (83) 127/70 (89) Pulse Ox 99 97 97 O2 Delivery Room Air Room Air Room Air 02/09/17 02/09/17 02/09/17 11/28/17 14:00 15:00 15:50 16:22 Temp 97.9 97.9 Pulse 70 69 75 76 Resp 15 12 18 16 B/P (MAP) 123/82 (96) 127/76 (93) 131/78 (95) 118/74 (89) Pulse Ox 96 96 97 97 O2 Delivery Room Air Room Air Room Air Room Air 02/09/17 02/09/17 02/09/17 02/09/17 19:00 19:04 20:00 20:43 Temp 99.1 99.1 Pulse 63 76 Resp 18 B/P (MAP) 136/77 (96) 118/74 Pulse Ox 98 O2 Delivery Room Air Room Air Room Air 02/09/17 02/10/17 02/10/17 23:00 03:00 07:16 Temp 98.6 98.1 98.6 98.1 Pulse 65 62 58 Resp 16 16 16 B/P (MAP) 118/71 (87) 111/71 (84) 123/76 (92) Pulse Ox 98 95 96 O2 Delivery Room Air Room Air Room Air Intake and Output 02/09/17 02/09/17 02/10/17 14:59 22:59 06:59 Intake Total 1000 ml 300 ml 600 ml Balance 1000 ml 300 ml 600 ml YOVANI TRINIDAD MD Feb 10, 2017 09:36
[2017-02-10] MEDS: SOTALOL 80 MG TABLET. PO SCH (09:42)
--- NOTE | 2017-02-10 11:08 | RAD ---
APPROVED REPORT Test Type: Pharmacological Stress Nurse/Tech: Karen Knutson R.N. Test Indications: c/p Cardiac History: htn,asthma, DM Medications: See Electronic Medical Record Medical History: See Electronic Medical Record Resting ECG: SR Resting Heart Rate: 65 bpm Resting Blood Pressure: 131/71mmHg Pretest Chest Pain: No chest pain Nurse/Tech Notes S1S2, lungs CTA Consent: The procedure was explained to the patient in lay terms. Informed consent was witnessed. Ian eout was entered into [employer]. History and Stress Test performed by RT Trell Barboza) (N) Pharm. Details Pharmacologic stress testing was performed using 0.4mg per 5ml of regadenoson given intravenously ove r 7-10 seconds. Stress Symptoms slight SOB and queasyness which quickly recovered from POST EXERCISE Reason for Termination: Infusion complete Max HR: 104 bpm Max Blood Pressure: 129/70mmHg Blood Pressure response to exercise: Normal blood pressure response during stress. Heart Rate response to exercise: hr quickly escalated for about 6 beats post lexiscan then dropped ba ck down to 70's Chest Pain: No. Arrhythmia: No. ST Change: No. INTERPRETATION Stress EKG Conclusion: Baseline EKG showed sinus rhythm. No ischemic changes at peak stress. No arr hythmias. Imaging Protocol IMAGE PROTOCOL: Rest Tc-99m/stress Tc-99m 1 day Rest: Stress: Viability: Radiopharm.Tc99m [id number] Sestamibi Dose11.1mCi 33.2mCi Duration 15min. 10min. Img Date 02/10/2017 02/10/2017 Inj-Img [id number]. 60min. Rest Admin Site:IV - Left AntecubitalAdministrator:RT Jabari (R)(N) Stress Admin Site: IV - Left AntecubitalAdministrator: RT Trell Barboza)(N) STRESS DATA End Diast. Vol.114.0mlAv. Heart Rate68.0bpm End Syst. Vol.41.0mlCO Index BSA0.0L/min Myocardial Zfnr742.0gEject. Eossjanb04.0% Stress Rates Pk. Fill Rate2.69EDV/secLVtime Pk. Fill 195.33msec Pk. Empty Rate3.39ESV/secLVtime Pk. Dnkld807.02msec 1/3 Pk. Fill1.21EDV/sec Stress Scores Regional WT0.00Summed WT1.00 Regional WM0.00Summed WM0.00 Study quality was good. Left Ventricular size was Normal at Rest and Stress. Lung uptake was Normal. Left Ventricular ejection fraction is 64%. The rest and stress images show normal perfusion, normal contraction and thickening. LV Perf. Quant 17 Seg. SSS3.00 17 Seg. SRS1.00 17 Seg. SDS3.00 Stress Defect Extent (% LAD)0.00Rest Defect Extent (% LAD)0.00Rev. Defect Extent (% LAD)0.00 Stress Defect Extent (% LCX) 12.50Rest Defect Extent (% LCX)0.00Rev. Defect Extent (% LCX)0.00 Stress Defect Extent (% RCA)0.00Rest Defect Extent (% RCA)0.00Rev. Defect Extent (% RCA)0.00 Stress Defect Extent (% CALVIN)3.90Rest Defect Extent (% CALVIN)0.00Rev. Defect Extent (% CALVIN)0.00 Conclusion 1. Regadenoson cardioisotope stress test did not show any evidence of ischemia or infarct. 2. Normal left ventricular systolic function with ejection fraction calculated at 64%. 3. Low risk for cardiac events.
[2017-02-10 14:50] VITALS: BP 119/71
--- NOTE | 2017-02-15 12:33 | PDOC3 ---
Discharge Summary Visit Information Date of Admission: Feb 09, 2017 Date of Discharge: Feb 10, 2017 Admitting Diagnosis: chest pain Final Diagnosis 1. Chest pain thought to be angina 2. costochondritis 3. Dm 2 4. Obesity BMI 30 Brief Hospital Course Allergies Allergies Coded Allergies Type Severity Reaction Last Updated Verified Penicillins Allergy Intermediate 02/10/17 Yes Brief Hospital Course Mr. Bruno is a 61 old male, admit chesrt pain, r/o ACS stres test neg, MPI showed no evidence of ischemic, EF 64% seen by Dr. Armando miller Discharge Information Condition at Discharge: Improved Follow Up: Weeks Disposition/Orders: D/C to Home Scheduled Amlodipine Besylate/Benazepril (Amlodipine-Benazepril 10-20 Mg), 1 CAP PO DAILY, (Reported) Bupropion Hcl (Wellbutrin Sr), 100 MG PO DAILY, (Reported) Hydrochlorothiazide (Hydrochlorothiazide Tablet ), 25 MG PO DAILY, (Reported) Lisinopril (Lisinopril), 20 MG PO DAILY, (Reported) Metformin Hcl (Metformin Hcl), 1,000 MG PO DAILYWBKFT, (Reported) Omeprazole (Omeprazole), 20 MG PO DAILY, (Reported) Simvastatin (Simvastatin), 20 MG PO HS, (Reported) Sotalol Hcl (Sotalol), 1 TAB PO BID, (Reported) Miscellaneous Medications Mv,Minerals/Fa/Lycopene/Ginkgo (One Daily For Men 50+ Adv Tab), 1 EACH PO, ( Reported) [L-thyroxine], (Reported) Patient Instructions Patient Instructions > 30 min face to face f./u BRENDEN Gant MD Feb 15, 2017 12:33
== END 2017-02-10 17:25 | disposition home or self-care (01) | DRG 206 ==
LOC: ER 09:41 → 5 SOUTH 14:37
PROVIDERS: ADMIT Internal Medicine; ATTEND Internal Medicine
DX: M94.0 Chondrocostal junction syndrome [Tietze] (principal); E03.9 Hypothyroidism, unspecified; I10 Essential (primary) hypertension; E11.9 Type 2 diabetes mellitus without complications; E66.9 Obesity, unspecified; M19.90 Unspecified osteoarthritis, unspecified site; F32.9 Major depressive disorder, single episode, unspecified; E78.00 Pure hypercholesterolemia, unspecified; E78.5 Hyperlipidemia, unspecified; Z83.49 Family history of other endocrine, nutritional and metabolic diseases; Z82.49 Family history of ischemic heart disease and other diseases of the circulatory system; Z88.0 Allergy status to penicillin; Z68.30 Body mass index [BMI] 30.0-30.9, adult; Z79.84 Long term (current) use of oral hypoglycemic drugs; I25.119 Atherosclerotic heart disease of native coronary artery with unspecified angina pectoris
CPT/HCPCS: 36415; 71010; 78452; 80053; 82962; 83690; 83735; 84484; 85025; 85379; 85610; 85730; 93005; 93017; 96361; 96374; 96375; 96376; A9500; J1815; J2270; J2405; J2785; J7030; 99285-25